=== PATIENT | male | born 1955 | race American Indian/Alaskan Native ===

== ENCOUNTER 2017-04-06 23:44 | Emergency (ER) | payer SELFPAY ==
[2017-04-07 00:01] VITALS: RESP 18; O2SAT 99
--- NOTE | 2017-04-07 01:26 | ED PDOC ---
Arrival/HPI - General Chief Complaint: Flu-like Symptoms Time Seen by Provider: 04/07/17 00:26 Historian: Patient - History of Present Illness Narrative History of Present Illness (Text): 04/07/17 01:24 Blake Dobson is a 62 year old male, whose past medical history includes splenectomy, who presents to the Emergency department brought in by EMS complaining of cold-like symptoms and cough for the past few days. Patient states he was seen at [facility] for similar complaints 2 days prior and was discharged home with antibiotic prescription not yet purchased.. Patient denies any fever, chills, chest pain, shortness of breath, nausea, vomiting, diarrhea, urinary symptoms, back pain, neck pain, headache, dizziness, or any other complaints. Symptom Onset: Gradual Symptom Course: Unchanged Activities at Onset: Light Context: Home Past Medical History - Provider Review Nursing Documentation Reviewed: Yes - Psychiatric Hx Substance Use: No Family/Social History - Physician Review Nursing Documentation Reviewed: Yes Family/Social History: Unknown Family HX Smoking Status: y Hx Alcohol Use: Yes Hx Substance Use: No Allergies/Home Meds Allergies/Adverse Reactions: Allergies No Known Allergies Allergy (Verified 04/06/17 23:57) Home Medications: Home Meds Medication Instructions Recorded Confirmed No Known Home Med 04/07/17 04/07/17 Review of Systems - Physician Review All systems were reviewed & negative as marked: Yes - Review of Systems Constitutional: Normal. absent: Fevers Eyes: Normal ENT: Other (+cold-like symptoms) Respiratory: Cough Cardiovascular: Normal. absent: Chest Pain Gastrointestinal: Normal. absent: Abdominal Pain, Diarrhea, Nausea, Vomiting Genitourinary Male: Normal. absent: Dysuria, Frequency, Hematuria, Urinary Output Changes Musculoskeletal: Normal. absent: Back Pain, Neck Pain Skin: Normal. absent: Rash Neurological: Normal. absent: Headache, Dizziness Endocrine: Normal Hemo/Lymphatic: Normal Psychiatric: Normal Physical Exam Vital Signs Reviewed: Yes Vital Signs Temp Pulse Resp BP Pulse Ox 04/06/17 23:53 97.9 F 84 18 151/90 H 99 Temperature: Afebrile Blood Pressure: Normal Pulse: Regular Respiratory Rate: Normal Appearance: Positive for: Well-Appearing, Non-Toxic, Comfortable Pain Distress: None Mental Status: Positive for: Alert and Oriented X 3 - Systems Exam Head: Present: Atraumatic, Normocephalic Pupils: Present: PERRL Extroacular Muscles: Present: EOMI Conjunctiva: Present: Normal Mouth: Present: Moist Mucous Membranes Neck: Present: Normal Range of Motion Respiratory/Chest: Present: Clear to Auscultation, Good Air Exchange. No: Respiratory Distress, Accessory Muscle Use Cardiovascular: Present: Regular Rate and Rhythm, Normal S1, S2. No: Murmurs Abdomen: Present: Normal Bowel Sounds. No: Tenderness, Distention, Peritoneal Signs Back: Present: Normal Inspection Upper Extremity: Present: Normal Inspection. No: Cyanosis, Edema Lower Extremity: Present: Normal Inspection. No: Edema Neurological: Present: GCS=15, CN II-XII Intact, Speech Normal Skin: Present: Warm, Dry, Normal Color. No: Rashes Psychiatric: Present: Alert, Oriented x 3, Normal Insight, Normal Concentration Medical Decision Making ED Course and Treatment: 04/07/17 01:25 Impression: 62 year old male complaining of cold-like symptoms and cough for the past few days. Plan: -- EKG -- Chest X-ray -- Labs, rapid influenza -- Reassess and disposition Progress Notes: reviewed EKG, NSR at 84 bpm. Sinus arrhythmia. No acute changes. 04/07/17 03:03 Chest X-ray reviewed, no acute processes. 04/07/17 03:10 On re-evaluation, patient feels better and is in no acute distress. I have discussed the results and plan with the patient, who expresses understanding. Patient in agreement with plan to be discharged home. Patient is stable for discharge. Patient was instructed to follow up with physician or return if symptoms worsen or new concerning symptoms arise. - Lab Interpretations Lab Results: 04/07/17 02:06 04/07/17 02:06 Lab Results 04/07/17 02:06: WBC 9.2, RBC 3.18 L, Hgb 10.0 L, Hct 29.0 L, MCV 91.2, MCH 31.4 , MCHC 34.5, RDW 14.2, Plt Count 414, MPV 11.4 H 04/07/17 02:06: Sodium 134, Potassium 4.1, Chloride 103, Carbon Dioxide 20 L, Anion Gap 14, BUN 10, Creatinine 0.6 L, Est GFR ( Amer) > 60, Est GFR ( Non-Af Amer) > 60, Random Glucose 122 H, Calcium 8.8, Total Bilirubin 0.4, AST 62 H, ALT 41, Alkaline Phosphatase 79, Total Protein 7.4, Albumin 3.1, Globulin 4.3, Albumin/Globulin Ratio 0.7 L 04/07/17 02:06: Influenza Typ A,B (EIA) Negative for flu a/b I have reviewed the lab results: Yes - RAD Interpretation Radiology Orders: 04/07/17 01:26 CHEST PORTABLE [RAD] Stat Cargo Inspector: ED Physician - EKG Interpretation Interpreted by ED Physician: Yes Type: 12 lead EKG - Scribe Statement The provider has reviewed the documentation as recorded by the Scribe Kyung Aaron All medical record entries made by the Gabyibe were at my direction and personally dictated by me. I have reviewed the chart and agree that the record accurately reflects my personal performance of the history, physical exam, medical decision making, and the department course for this patient. I have also personally directed, reviewed, and agree with the discharge instructions and disposition. Disposition/Present on Arrival - Present on Arrival Any Indicators Present on Arrival: No History of DVT/PE: No History of Uncontrolled Diabetes: No Urinary Catheter: No History of Decub. Ulcer: No History Surgical Site Infection Following: None - Disposition Have Diagnosis and Disposition been Completed?: Yes Diagnosis: Bronchitis Disposition: HOME/ ROUTINE Disposition Time: 03:14 Patient Plan: Discharge Patient Problems: Current Active Problems Problem Status Onset Bronchitis Acute Condition: GOOD Additional Instructions: Take your meds as previously prescribed/drink plenty of liquids/follow up with your doctor this week Referrals: PCP,NO [Primary Care Provider] - Follow up with primary Forms: [place] (Bulgarian)
[2017-04-07 02:26] LABS: MEAN CELL VOLUME 91.2 fl (80.0-105.0); MEAN CORPUSCULAR HEMOGLOBIN 31.4 pg (25.0-35.0); MEAN CORPUSCULAR HGB CONC 34.5 g/dl (31.0-37.0); MEAN PLATELET VOLUME 11.4 fl (7.0-11.0); RBC 3.18 10^6/uL (3.5-6.1); RED CELL DISTRIBUTION WIDTH 14.2 % (11.5-14.5); WHITE BLOOD COUNT 9.2 10^3/ul (4.5-11.0)
[2017-04-07 02:34] LABS: ALB/GLOB RATIO 0.7 (1.1-1.8); ALBUMIN 3.1 g/dL (3.0-4.8); ALT/SGPT 41 U/L (7-56); AST/SGOT 62 U/L (17-59); BLOOD UREA NITROGEN 10 mg/dL (7-21); CALCIUM 8.8 mg/dL (8.4-10.5); GFR AFRICAN-AMERICAN > 60; GFR NON-AFRICAN AMERICAN > 60
[2017-04-07 03:27] VITALS: BP 148/82; PULSE 82; TEMP 98.2
--- NOTE | 2017-04-07 08:31 | RAD ---
HISTORY: cough COMPARISON: No prior. FINDINGS: LUNGS: Opacity at right base which may reflect subsegmental atelectasis. Followup advised. Questionable retrocardiac opacity. PLEURA: Blunting of left costophrenic angle may reflect pleural effusion. Right costophrenic angle is clear. No pneumothorax. CARDIOVASCULAR: Normal. OSSEOUS STRUCTURES: No significant abnormalities. VISUALIZED UPPER ABDOMEN: Normal. OTHER FINDINGS: None. IMPRESSION: Bibasilar opacities, possible infiltrate versus atelectasis. Possible left pleural effusion versus chronic pleural thickening.
--- NOTE | 2017-04-07 10:55 | CARD ---
APPROVED REPORT EKG Measurement Heart [id number] <Conclusion> Normal sinus rhythm with sinus arrhythmia Possible Left atrial enlargement Borderline ECG
== END 2017-04-07 03:25 | disposition home or self-care (01) ==
LOC: ED 23:44
DX: J40 Bronchitis, not specified as acute or chronic (principal)